=== PATIENT | male | born 1945 | race Caucasian/White ===

== ENCOUNTER 2018-03-18 12:55 | Observation (INO) ==
[2018-03-18] MEDS ORDERED: predniSONE 20 MG TABLET PO ONE (13:17)
[2018-03-18] MEDS ORDERED: Ipratropium/Albuterol Neb 3 ML IH ONE (13:17)
[2018-03-18 13:48] LABS: Basophils # 0.1 K/mcL (0.0-0.2); Basophils % 0.5 %; Eosinophils # 0.3 K/mcL (0.0-0.6); Hematocrit 39.4 % (37.5-50.1); Hemoglobin 12.8 g/dL (12.9-16.9); Immature Granulocytes % 0.9 % (0-4); Lymphocytes # 1.2 K/mcL (0.6-4.6); Lymphocytes % 12.3 %; Mean Corpuscular HGB Conc 32.5 g/dL (31.6-35.5); Mean Corpuscular Volume 92.3 fL (83.0-100.0); Mean Platelet Volume 9.6 fL (9.4-12.4); Monocytes # 1.5 K/mcL (0.0-1.3); Monocytes % 15.6 %; Neutrophils # 6.3 K/mcL (1.6-8.9); Platelet Count 369 K/mcL (140-400); Red Blood Count 4.27 M/mcL (4.19-5.50); Red Cell Distribution Width 12.5 % (11.5-14.5); Segmented Neutrophils % 67.7 %
[2018-03-18 14:04] LABS: BUN/Creatinine Ratio 18 (6-26); Blood Urea Nitrogen 22 mg/dL (8-23); Calcium 9.5 mg/dL (8.6-10.3); Carbon Dioxide 23 mEq/L (23-29); Chloride 102 mEq/L (98-107); Glucose 108 mg/dL (70-105); Osmolality,Calculated 284 (280-300); Potassium 4.4 mEq/L (3.5-5.1); Sodium 135 mEq/L (136-145); Troponin I < 0.03 ng/mL (< 0.04); eGFR For Non-African Americans 59 (> 60)
--- NOTE | 2018-03-18 14:36 | Emergency Department Note ---
Disposition Clinical Impression: Acute exacerbation of chronic obstructive airways disease, Hypoxia Disposition: Admitted As Inpatient Condition: Fair Referrals: NONE,PCP [Primary Care Provider] - Forms: ED Satisfaction Letter General Adult HPI - General Chief complaint: ED Shortness of Breath/Dyspnea Stated complaint: ALEKSANDAR Time Seen by Provider: 03/18/18 13:03 Source: patient, family Mode of arrival: ambulatory Limitations: no limitations Nursing Notes Reviewed: Yes Vital Signs Reviewed: Yes - History of Present Illness HPI Narrative: 72-year-old male with no significant past medical history presenting to the emergency department chief complaint of shortness of breath. Patient states he is a current smoker. Denies visiting a physician in greater than 5 years. He states he "most likely has COPD". He states her the past few days he has been having increased difficulty in breathing and a productive cough. Denies any fevers, chest pain, abdominal pain, nausea or vomiting at home. He states it all started with an upper respiratory infection and congestion. Progressively started going into his lungs and has now had a productive cough. Patient denies taking any medications at home for this. Pain Scale: 0 - Related Data Home Medications Medication Instructions Recorded Confirmed Aspirin [Adult Aspirin] 81 mg PO DAILY 03/18/18 03/18/18 Allergies Allergy/AdvReac Type Severity Reaction Status Date / Time Penicillins Allergy Anaphylaxis Verified 03/18/18 13:00 All systems ED: reviewed and negative except as stated. Constitutional: Denies: fever, chills Eyes: Reports: as per HPI ENT ED: Reports: as per HPI Cardiovascular: Reports: dyspnea on exertion. Denies: chest pain, palpitations Respiratory: Reports: cough, dyspnea, wheezes, sputum production. Denies: hemoptysis, stridor Gastrointestinal: Denies: abdominal pain, nausea, vomiting Genitourinary: Reports: as per HPI Musculoskeletal: Reports: as per HPI Integumentary: Denies: rash Neurological: Denies: weakness, numbness, paresthesias Psychiatric: Reports: as per HPI Endocrine: Reports: as per HPI Hematological/Lymphatic: Reports: as per HPI Allergic/Immunologic: Reports: as per HPI Past Medical History - Past Medical History Attestation: Yes The following information was validated with the patient. Medical history: Reports: no medical history Psychiatric history: Reports: no psych history - Social History Smoking Status: Current every day smoker Smokeless Tobacco Status: No (1-1.5 packs/day) Alcohol use: Reports: none Drug use: Reports: none Physical Exam - General Limitations: no limitations General appearance: alert, in no apparent distress - Head Head exam: atraumatic, normocephalic, normal inspection - Eye Eye exam: Present: normal appearance. Absent: scleral icterus, conjunctival i njection - ENT ENT exam: normal exam, mucous membranes moist - Neck Neck exam: Present: normal inspection, full ROM. Absent: tenderness, meningismus - Chest Chest inspection: Present: normal inspection, symmetric chest wall rise. Absent: tenderness, rash - Respiratory Respiratory exam: Present: other (Decreased breath sounds in the bilateral bases. Inspiratory and expiratory wheezing in the upper lung mejía) - Cardiovascular Cardiovascular exam: Present: normal rhythm, tachycardia, normal heart sounds - Abdominal Exam Abdominal exam: Present: soft, Non-Tender. Absent: distention, guarding, rebound - Extremities Exam Extremities exam: Present: normal inspection, full ROM - Neurological Exam Neurological exam: Present: alert, oriented X3 - Psychiatric Psychiatric exam: Present: normal affect, normal mood - Skin Skin exam: Present: warm, intact Course Course Narrative: 72-year-old male presenting for shortness of breath. On physical exam patient is tachycardic and has diffuse wheezing. Patient is an active smoker. He denies any other symptoms at home. Physical exam otherwise benign. He is alert and oriented 3. Hemodynamically stable. At this time we will perform a dyspnea workup including chest x-ray, troponin, basic labs along with 3 cathie k-to-back DuoNeb nebs and steroids. Disposition pending results. Patient agrees with this plan. - Reevaluation(s) Reevaluation #1: Patient still conversationally dyspneic upon reassessment. Oxygen saturation 92% during ambulation. At this time will plan to admit the patient for presumed COPD exacerbation. Chest x-ray shows possible pneumonia. We will provide him with a dose of azithromycin in the emergency department. Patient remains alert and oriented 3 and hemodynamically stable. Patient agrees with this plan. I spoke with the hospitalist operational risk consultant Dr. Phelps who agrees to accept the patient at this time. Vital Signs Temperature 98.5 F 03/18/18 12:57 Pulse Rate 112 03/18/18 12:57 Respiratory Rate 24 03/18/18 12:57 Blood Pressure 173/91 03/18/18 12:57 O2 Sat by Pulse Oximetry 94 03/18/18 12:57 Temperature 98.5 F 03/18/18 13:14 Pulse Rate 122 03/18/18 14:03 Respiratory Rate 26 03/18/18 14:03 Blood Pressure 135/86 03/18/18 14:03 O2 Sat by Pulse Oximetry 95 03/18/18 14:03 Oxygen Delivery Oxygen Delivery Room Air Medical Decision Making - Lab Data Result diagrams: 03/18/18 13:28 03/18/18 13:28 Lab Results 03/18/18 03/18/18 03/18/18 Range/Units 13:28 13:28 13:28 WBC 9.4 (4.3-11.1) K/mcL RBC 4.27 (4.19-5.50) M/mcL Hgb 12.8 L (12.9-16.9) g/dL Hct 39.4 (37.5-50.1) % MCV 92.3 (83.0-100.0) fL MCH 30.0 (28.0-33.3) pg MCHC 32.5 (31.6-35.5) g/dL RDW 12.5 (11.5-14.5) % Plt Count 369 (140-400) K/mcL MPV 9.6 (9.4-12.4) fL Immature Gran % 0.9 (0-4) % Seg Neutrophils % 67.7 % Lymphocytes % 12.3 % Monocytes % 15.6 % Eosinophils % 3.0 % Basophils % 0.5 % Neutrophils # 6.3 (1.6-8.9) K/mcL Lymphocytes # 1.2 (0.6-4.6) K/mcL Monocytes # 1.5 H (0.0-1.3) K/mcL Eosinophils # 0.3 (0.0-0.6) K/mcL Basophils # 0.1 (0.0-0.2) K/mcL Sodium 135 L (136-145) mEq/L Potassium 4.4 (3.5-5.1) mEq/L Chloride 102 (98-107) mEq/L Carbon Dioxide 23 (23-29) mEq/L BUN 22 (8-23) mg/dL Creatinine 1.20 (0.70-1.30) mg/dL Est GFR ( Amer) > 60 (> 60) Est GFR (Non-Af Amer) 59 L (> 60) BUN/Creatinine Ratio 18 (6-26) Glucose 108 H (70-105) mg/dL Calculated Osmolality 284 (280-300) Lactic Acid 1.1 (0.5-2.2) mmol/L Calcium 9.5 (8.6-10.3) mg/dL Troponin I < 0.03 (< 0.04) ng/mL B-Natriuretic Peptide (Less than 100) pg/mL 03/18/18 Range/Units 13:28 WBC (4.3-11.1) K/mcL RBC (4.19-5.50) M/mcL Hgb (12.9-16.9) g/dL Hct (37.5-50.1) % MCV (83.0-100.0) fL MCH (28.0-33.3) pg MCHC (31.6-35.5) g/dL RDW (11.5-14.5) % Plt Count (140-400) K/mcL MPV (9.4-12.4) fL Immature Gran % (0-4) % Seg Neutrophils % % Lymphocytes % % Monocytes % % Eosinophils % % Basophils % % Neutrophils # (1.6-8.9) K/mcL Lymphocytes # (0.6-4.6) K/mcL Monocytes # (0.0-1.3) K/mcL Eosinophils # (0.0-0.6) K/mcL Basophils # (0.0-0.2) K/mcL Sodium (136-145) mEq/L Potassium (3.5-5.1) mEq/L Chloride (98-107) mEq/L Carbon Dioxide (23-29) mEq/L BUN (8-23) mg/dL Creatinine (0.70-1.30) mg/dL Est GFR ( Amer) (> 60) Est GFR (Non-Af Amer) (> 60) BUN/Creatinine Ratio (6-26) Glucose (70-105) mg/dL Calculated Osmolality (280-300) Lactic Acid (0.5-2.2) mmol/L Calcium (8.6-10.3) mg/dL Troponin I (< 0.04) ng/mL B-Natriuretic Peptide 55 (Less than 100) pg/mL - EKG Data EKG #1 EKG attestation: Yes I reviewed and interpreted this EKG. EKG results narrative: Sinus tachycardia. 109 beats for minute. RI interval 132, QRS 83, QTC 441. No sign of acute ST segment elevation or ischemia.
--- NOTE | 2018-03-18 14:57 | Emergency Department Note ---
Disposition Clinical Impression: Acute exacerbation of chronic obstructive airways disease Disposition: Admitted As Inpatient Referrals: NONE,PCP [Primary Care Provider] - Forms: ED Satisfaction Letter General Adult HPI - General Chief complaint: ED Shortness of Breath/Dyspnea Stated complaint: ALEKSANDAR Time Seen by Provider: 03/18/18 13:03 Source: patient, family Mode of arrival: ambulatory Limitations: no limitations - History of Present Illness Pain Scale: 0 - Related Data Allergies Allergy/AdvReac Type Severity Reaction Status Date / Time Penicillins Allergy Anaphylaxis Verified 03/18/18 13:00 Constitutional: Denies: fever, chills Eyes: Reports: as per HPI ENT ED: Reports: as per HPI Cardiovascular: Reports: dyspnea on exertion. Denies: chest pain, palpitations Respiratory: Reports: cough, dyspnea, wheezes, sputum production. Denies: hemoptysis, stridor Gastrointestinal: Denies: abdominal pain, nausea, vomiting Genitourinary: Reports: as per HPI Musculoskeletal: Reports: as per HPI Integumentary: Denies: rash Neurological: Denies: weakness, numbness, paresthesias Psychiatric: Reports: as per HPI Endocrine: Reports: as per HPI Hematological/Lymphatic: Reports: as per HPI Allergic/Immunologic: Reports: as per HPI Past Medical History - Past Medical History Medical history: Reports: no medical history Psychiatric history: Reports: no psych history - Social History Smoking Status: Current every day smoker Smokeless Tobacco Status: No (1-1.5 packs/day) Alcohol use: Reports: none Drug use: Reports: none Physical Exam - General Limitations: no limitations General appearance: alert, in no apparent distress Course Vital Signs Temperature 98.5 F 03/18/18 12:57 Pulse Rate 112 03/18/18 12:57 Respiratory Rate 24 03/18/18 12:57 Blood Pressure 173/91 03/18/18 12:57 O2 Sat by Pulse Oximetry 94 03/18/18 12:57 Temperature 98.5 F 03/18/18 13:14 Pulse Rate 122 03/18/18 14:03 Respiratory Rate 26 03/18/18 14:03 Blood Pressure 135/86 03/18/18 14:03 O2 Sat by Pulse Oximetry 95 03/18/18 14:03 Oxygen Delivery Oxygen Delivery Room Air Medical Decision Making - Lab Data Result diagrams: 03/18/18 13:28 03/18/18 13:28 Lab Results 03/18/18 03/18/18 03/18/18 Range/Units 13:28 13:28 13:28 WBC 9.4 (4.3-11.1) K/mcL RBC 4.27 (4.19-5.50) M/mcL Hgb 12.8 L (12.9-16.9) g/dL Hct 39.4 (37.5-50.1) % MCV 92.3 (83.0-100.0) fL MCH 30.0 (28.0-33.3) pg MCHC 32.5 (31.6-35.5) g/dL RDW 12.5 (11.5-14.5) % Plt Count 369 (140-400) K/mcL MPV 9.6 (9.4-12.4) fL Immature Gran % 0.9 (0-4) % Seg Neutrophils % 67.7 % Lymphocytes % 12.3 % Monocytes % 15.6 % Eosinophils % 3.0 % Basophils % 0.5 % Neutrophils # 6.3 (1.6-8.9) K/mcL Lymphocytes # 1.2 (0.6-4.6) K/mcL Monocytes # 1.5 H (0.0-1.3) K/mcL Eosinophils # 0.3 (0.0-0.6) K/mcL Basophils # 0.1 (0.0-0.2) K/mcL Sodium 135 L (136-145) mEq/L Potassium 4.4 (3.5-5.1) mEq/L Chloride 102 (98-107) mEq/L Carbon Dioxide 23 (23-29) mEq/L BUN 22 (8-23) mg/dL Creatinine 1.20 (0.70-1.30) mg/dL Est GFR ( Amer) > 60 (> 60) Est GFR (Non-Af Amer) 59 L (> 60) BUN/Creatinine Ratio 18 (6-26) Glucose 108 H (70-105) mg/dL Calculated Osmolality 284 (280-300) Lactic Acid 1.1 (0.5-2.2) mmol/L Calcium 9.5 (8.6-10.3) mg/dL Troponin I < 0.03 (< 0.04) ng/mL B-Natriuretic Peptide (Less than 100) pg/mL 03/18/18 Range/Units 13:28 WBC (4.3-11.1) K/mcL RBC (4.19-5.50) M/mcL Hgb (12.9-16.9) g/dL Hct (37.5-50.1) % MCV (83.0-100.0) fL MCH (28.0-33.3) pg MCHC (31.6-35.5) g/dL RDW (11.5-14.5) % Plt Count (140-400) K/mcL MPV (9.4-12.4) fL Immature Gran % (0-4) % Seg Neutrophils % % Lymphocytes % % Monocytes % % Eosinophils % % Basophils % % Neutrophils # (1.6-8.9) K/mcL Lymphocytes # (0.6-4.6) K/mcL Monocytes # (0.0-1.3) K/mcL Eosinophils # (0.0-0.6) K/mcL Basophils # (0.0-0.2) K/mcL Sodium (136-145) mEq/L Potassium (3.5-5.1) mEq/L Chloride (98-107) mEq/L Carbon Dioxide (23-29) mEq/L BUN (8-23) mg/dL Creatinine (0.70-1.30) mg/dL Est GFR ( Amer) (> 60) Est GFR (Non-Af Amer) (> 60) BUN/Creatinine Ratio (6-26) Glucose (70-105) mg/dL Calculated Osmolality (280-300) Lactic Acid (0.5-2.2) mmol/L Calcium (8.6-10.3) mg/dL Troponin I (< 0.04) ng/mL B-Natriuretic Peptide 55 (Less than 100) pg/mL Attestation Statement - Attestation Attestation: I examined this patient and my medical decision-making was reviewed with the Resident Physician. I agree with the documented findings, disposition and treatment plan as described except to the extent set forth below. 72 yea rold male who is dyspneic while talking and exertional while doing the ambulatory walk test with a baseline of 92%. PAtinet benefitted moderately from the bresthing tretment but still appears dyspneic on exam without being hypoxic. we will admit for COPD excerbation
[2018-03-18] MEDS ORDERED: Azithromycin 500 MG in D5% in Water 250 ML IVPB ONE (16:00)
[2018-03-18] MEDS ORDERED: Naloxone 0.4 MG/ML INJ IVP PRN (16:02)
[2018-03-18] MEDS ORDERED: *HR* HYDROcodone/Acet 5/325 mg TABLET PO PRN (16:02)
[2018-03-18] MEDS ORDERED: Acetaminophen 325 MG TABLET PO PRN (16:02)
[2018-03-18] MEDS ORDERED: methylPREDNISolone 125 MG/2 ML VIAL IVP ONE (16:18)
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
[2018-03-18] MEDS ORDERED: Levofloxacin 750 MG/150 ML 750 MG/150 ML BAG IVPB SCH (18:00)
[2018-03-18] MEDS: Levalbuterol Neb 1.25 MG/3 ML IH SCH ×2 (18:41→20:17)
[2018-03-18] MEDS: Nicotine 14 MG PATCH.TD24 TD SCH (19:26)
[2018-03-18] MEDS: 0.9 % Sodium Chloride 1,000 ML IVC SCH (19:27)
[2018-03-18] MEDS: GuaiFENesin/Dextromethorphan TABLET PO SCH (23:21)
[2018-03-18] MEDS: methylPREDNISolone 125 MG/2 ML VIAL IVP SCH (23:21)
[2018-03-18] MEDS: *HR* Heparin 5,000 UNIT/ML VIAL SQ SCH (23:23)
[2018-03-19 00:16] LABS: Adenovirus Not Detected (Not Detect); Bordetella Pertussis Not Detected (Not Detect); Chlamydophila pneumoniae Not Detected (Not Detect); Coronavirus 229E Not Detected (Not Detect); Coronavirus HKU1 Not Detected (Not Detect); Coronavirus NL63 Not Detected (Not Detect); Coronavirus OC43 Not Detected (Not Detect); Human Metapneumovirus Not Detected (Not Detect); Human Rhinovirus/Enterovirus Not Detected (Not Detect); Influenza A Subtype 2009 H1 Not Detected (Not Detect); Influenza A Untypeable Not Detected (Not Detect); Influenza B Not Detected (Not Detect); Mycoplasma pneumoniae Not Detected (Not Detect); Parainfluenza Virus 1 Not Detected (Not Detect); Parainfluenza Virus 2 Not Detected (Not Detect); Parainfluenza Virus 3 Not Detected (Not Detect); Parainfluenza Virus 4 Not Detected (Not Detect); Respiratory Syncytial Virus Not Detected (Not Detect)
[2018-03-19] MEDS: Levalbuterol Neb 1.25 MG/3 ML IH SCH ×3 (03:50→15:55)
[2018-03-19 03:57] LABS: Basophils % 0.2 %; Hemoglobin 12.1 g/dL (12.9-16.9); Immature Granulocytes % 1.4 % (0-4); Lymphocytes # 0.5 K/mcL (0.6-4.6); Lymphocytes % 5.7 %; Mean Corpuscular HGB Conc 33.6 g/dL (31.6-35.5); Mean Corpuscular Hemoglobin 30.6 pg (28.0-33.3); Mean Corpuscular Volume 90.9 fL (83.0-100.0); Mean Platelet Volume 9.8 fL (9.4-12.4); Monocytes # 0.3 K/mcL (0.0-1.3); Monocytes % 3.8 %; Platelet Count 351 K/mcL (140-400); Red Blood Count 3.96 M/mcL (4.19-5.50); Red Cell Distribution Width 12.4 % (11.5-14.5); Segmented Neutrophils % 88.9 %
[2018-03-19 04:03] LABS: Estimated Average Glucose 123 mg/dl; Hemoglobin A1C 5.9 %
[2018-03-19 04:19] LABS: Alanine Aminotransferase 28 Units/L (7-52); Albumin 3.4 g/dL (3.5-5.7); Albumin/Globulin Ratio 0.9 (1.1-2.2); Alkaline Phosphatase 112 Units/L (34-104); Aspartate Amino Transferase 20 Units/L (13-39); BUN/Creatinine Ratio 21 (6-26); Bilirubin,Total 0.5 mg/dL (0.3-1.0); Blood Urea Nitrogen 22 mg/dL (8-23); Calcium 9.2 mg/dL (8.6-10.3); Carbon Dioxide 23 mEq/L (23-29); Chloride 101 mEq/L (98-107); Chol/HDL Ratio 5.8 (0-4.9); Cholesterol 138 mg/dL (< 200); Globulin 3.6 g/dL (2.4-3.5); Glucose 159 mg/dL (70-105); HDL Cholesterol 24 mg/dL (40-59); LDL Cholesterol,Calculated 87 mg/dL (0-99); Magnesium 1.8 mg/dL (1.6-2.6); Osmolality,Calculated 285 (280-300); Potassium 4.3 mEq/L (3.5-5.1); Sodium 134 mEq/L (136-145); Triglycerides 135 mg/dL (< 150); eGFR For Non-African Americans > 60 (> 60)
[2018-03-19] MEDS: *HR* Heparin 5,000 UNIT/ML VIAL SQ SCH ×2 (06:05→13:47)
--- NOTE | 2018-03-19 07:54 | Internal Med Progress Note ---
Hospitalist Progress Note - Encounter Date of Encounter: 03/19/18 Time of Encounter: 10:55 - Subjective Interval History: Patient seen and examined resting appointment - Exam Vitals: Temp Pulse Resp BP Pulse Ox 97.5 F L 96 18 157/87 97 03/19/18 07:48 03/19/18 07:48 03/19/18 07:48 03/19/18 07:48 03/19/18 07:48 - Assessment and Plan (1) Acute exacerbation of chronic obstructive airways disease Current Visit: Yes Status: Acute (2) Hypoxia Current Visit: Yes Status: Acute (3) CAP (community acquired pneumonia) Current Visit: Yes Status: Acute (4) DVT prophylaxis Current Visit: Yes Status: Acute (5) Hx of essential hypertension Current Visit: Yes Status: Chronic (6) Hyponatremia Current Visit: Yes Status: Acute (7) Cough Current Visit: Yes Status: Acute - Time Spent with Patient Total time spent is greater than 50% in coordination of care (as documented) at patient's floor/unit and/or counseling patient: Internal Medicine: Result - Labs CBC & Chem 7: 03/19/18 03:11 03/19/18 03:11 Labs: Short CBC 03/18/18 03/19/18 Range/Units 13:28 03:11 WBC 9.4 9.0 (4.3-11.1) K/mcL Hgb 12.8 L 12.1 L (12.9-16.9) g/dL Hct 39.4 36.0 L (37.5-50.1) % Plt Count 369 351 (140-400) K/mcL Neutrophils # 6.3 8.0 (1.6-8.9) K/mcL BMP 03/18/18 03/19/18 13:28 03:11 Sodium 135 L 134 L Potassium 4.4 4.3 Chloride 102 101 Carbon Dioxide 23 23 BUN 22 22 Creatinine 1.20 1.04 Glucose 108 H 159 H Calcium 9.5 9.2 Cardiac Enzymes 03/18/18 Range/Units 13:28 Troponin I < 0.03 (< 0.04) ng/mL Liver Function 03/19/18 Range/Units 03:11 Total Bilirubin 0.5 (0.3-1.0) mg/dL AST 20 (13-39) Units/L ALT 28 (7-52) Units/L Alkaline Phosphatase 112 H (34-104) Units/L Albumin 3.4 L (3.5-5.7) g/dL - ABG Interpretation ABG results: PT/INR, D-dimer D-Dimer 761 ng/mLFEU (0-500) H 03/18/18 16:35 - Impressions Impressions Chest X-Ray 03/18/18 13:05 IMPRESSION: 1. Reticular opacities throughout the lungs, unclear chronicity as no prior studies are available for comparison. Differential considerations include mild edema, atypical infection, or chronic lung changes. D/ / 03/18/2018 15:23:10 Paola Benites MD / main Interpreting Provider: Paola Benites MD Consult Discharge Plan - Plan Referrals: NONE,PCP [Primary Care Provider] - (3) CAP (community acquired pneumonia) Qualifiers: Laterality: unspecified laterality Qualified Code(s): J18.9 - Pneumonia, unspecified organism
[2018-03-19] MEDS ORDERED: Aspirin Enteric Coated 81 MG Tablet PO SCH (09:00)
[2018-03-19] MEDS: methylPREDNISolone 125 MG/2 ML VIAL IVP SCH (09:10)
[2018-03-19] MEDS: Nicotine 14 MG PATCH.TD24 TD SCH (09:11)
[2018-03-19] MEDS: GuaiFENesin/Dextromethorphan TABLET PO SCH (09:12)
[2018-03-19] MEDS: 0.9 % Sodium Chloride 1,000 ML IVC SCH (09:27)
[2018-03-19] MEDS ORDERED: Isovue-370 500 ML INFUS..BTL IV ONE (12:18)
[2018-03-19] MEDS ORDERED: predniSONE 20 MG TABLET PO SCH (12:30)
[2018-03-19 15:36] VITALS: BP 164/92
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
--- NOTE | 2018-03-24 18:10 | Electrocardiograph Report ---
[address] [address] Test Date: 2018-03-18 Pat Name: Jose Hernandez Department: [id number] Room: 3B Gender: M Industrial Engineering Technician: : [id number] Requested By: [id number] Order Number: [id number] Reading MD: Ten Loaiza Measurements Intervals [place] Rate: 109 P: 81 IA: 132 QRS: 43 QRSD: 83 T: 82 QT: 327 QTc: 441 Interpretive Statements Sinus tachycardia Abnormal R-wave progression, early transition Electronically Signed On 03-24-2018 18:09:03 EDT by Ten Loaiza
== END 2018-03-19 17:14 | disposition home or self-care (01) ==
LOC: 3BNU 12:55 → EMEROOARM 12:55 → SUATTDRO 18:45 → 3BNU 20:00
PROVIDERS: ADMIT Internal Medicine Nephrology; ATTEND Internal Medicine